=== PATIENT | male | born 1945 | race Caucasian/White ===

== ENCOUNTER 2017-03-31 12:59 | Inpatient (IN) | payer BC, OTHER ==
[~2017-03-31] VITALS: Ht 182.9 cm; Wt 72.1 kg
--- NOTE | ~2017-03-31 | HC ---
[facility] [place] [address] CONSULTATION Name: SAMMY BILLINGS Room #: 353-P [facility] IN ..#: [id number] Admission: 03/31/17 Attend Phys: Sean Lincoln MD Discharge: 04/03/17 Date of : 49 Report #: [id number] THIS REPORT FOR: //name// CC: JUSTYNA physician/PCP Sean Lincoln REASON FOR CONSULTATION: AFib. HISTORY OF PRESENT ILLNESS: The patient is a 71-year-old male with a history of atrial fibrillation, ETOH abuse and prior traumatic subarachnoid hemorrhage back in 05/2015 who presented with several days of palpitations started on Friday and started noticing increased fatigue and lightheadedness. He had had some frequent falls. He denies any problems with chest pain or chest tightness. He denies any PND or orthopnea. REVIEW OF SYSTEMS: GENERAL: No fevers or chills. HEENT: No blurred vision. CARDIOVASCULAR: As above. PULMONARY: No productive cough. GASTROINTESTINAL: No nausea or vomiting. GENITOURINARY: No dysuria. MUSCULOSKELETAL: No myalgias or arthralgias. ENDOCRINE: No heat or cold intolerance. PAST MEDICAL HISTORY: 1. Atrial fibrillation, previously on meds, but he stopped them approximately a year and a half ago, previously saw Dr. Rendon. 2. ETOH abuse, drinks about a pint a day. 3. Prior pancreatitis. 4. Gout. 5. ETOH withdrawal. 6. Traumatic subarachnoid hemorrhage 05/2015 in the setting of alcohol use. ALLERGIES: None. MEDICATIONS: Reviewed. SOCIAL HISTORY: Does not smoke. He does drink about a pint per day. PHYSICAL EXAMINATION: VITAL SIGNS: Temperature is 36.7, pulse 91, respiration 18, blood pressure 140/96, sats 98%. GENERAL: He is in no acute distress. HEENT: Oropharynx is clear. NECK: Supple, no thyromegaly. HEART: Irregularly irregular with no murmurs, rubs, gallops. He does not have [facility] [address] [place] [address] CONSULTATION Name: DANA BILLINGSWayne Nagel Room #: 353-[facility]#: [id number] Admission: 03/31/17 Attend Phys: Sean Lincoln MD Discharge: 04/03/17 Date of : 49 Report #: [id number] elevated jugular venous pressures. LUNGS: Clear bilaterally. ABDOMEN: Soft, nontender, nondistended. EXTREMITIES: No clubbing, cyanosis, edema. NEUROLOGIC: Cranial nerves 2-12 are intact. LABORATORY DATA: White count 5.7, hemoglobin 13, platelets 140. Chemistries: Sodium 138, potassium 3.6, BUN 24, creatinine 1.0, magnesium 0.8. On admission, troponin was negative. ProBNP was 485. His chest x-ray showed no acute process. His EKG shows atrial fibrillation with rapid ventricular response. His alcohol level was elevated at 29. His telemetry shows atrial fibrillation with rates under control. ASSESSMENT: 1. Atrial fibrillation with rapid ventricular response. 2. Alcohol abuse. 3. Prior subarachnoid hemorrhage. 4. Hypoglycemia. SUMMARY: The patient is a 71-year-old with history of atrial fibrillation who has had clinical recurrence. He is currently on a diltiazem drip. I have initiated Toprol and IV digoxin to get his rates under control and hopefully, get him off the drip. Given his recent falls, I am concerned about initiation of anticoagulation and we will start him on aspirin at this point and then discuss with him and his if they would like to initiate anticoagulation eventually. We will follow. <ELECTRONICALLY SIGNED> By: Jaylon Howe MD 04/04/17 1044 0825 1728 Jaylon Howe MD /nt
--- NOTE | ~2017-03-31 | CATHLAB ---
[facility] [place] [address] INVASIVE PROCEDURE REPORT Name: SAMMY BILLINGS Room #: 353-P [facility]#: [id number] Admission: 03/31/17 Attend Phys: Sean Lincoln MD Discharge: 04/03/17 Date of : 49 Date of Service: 04/03/17 0837 Report #: [id number] THIS REPORT FOR: //name// CC: [facility] physician/PCP Sean Lincoln INDICATIONS: Atrial fibrillation. PROCEDURE: The potential benefits and risks of the procedure were discussed at length with the patient who understood. Full written and informed consent was obtained. The patient was sedated with intravenous Versed and fentanyl. 100 biphasic synchronous joules were applied to the chest with prompt conversion of atrial fibrillation to sinus rhythm. He remained in electrically, neurologically and hemodynamically stable condition following the procedure and was transported back to his hospital room. <ELECTRONICALLY SIGNED> By: Larry Villarreal MD, FACC 04/04/17 0753 0837 0942 Larry Villarreal MD, FACC /nt
--- NOTE | ~2017-03-31 | 2DMMODE ---
[facility] [address] [place] [address] 2 D/M-MODE ECHOCARDIOGRAM Name: SAMMY BILLINGS Room #: 353-P [facility] IN [facility].#: [id number] Admission: 03/31/17 Attend Phys: Sean Lincoln MD Discharge: Date of : 49 Date of Service: 04/01/17 1146 Report #: [id number] THIS REPORT FOR: //name// APPROVED REPORT Study performed: 04/01/2017 10:55:36 EXAM: Comprehensive 2D, Doppler, and color-flow Echocardiogram Patient Location: Bedside Room #: 353 Status: routine BSA: 1.93 HR: 77 bpm BP: 140/96 mmHg Other Information Study Quality: Adequate Indications Atrial Fibrillation Hypertension/HDD 2D Dimensions RVDd: 40.48 mm LVEF(%): 64.95 (>50%) IVSd: 8.85 (7-11mm) LVOT Diam: 21.01 (18-24mm) LVDd: 39.66 mm PWd: 8.88 (7-11mm) Ascending Ao: 30.30 (22-36mm) LVDs: 25.76 (25-40mm) Aortic Root: 30.37 mm IVC: 15.00 mm Amaro's LVEF: 64.95 % Volumes Left Atrial Volume (Systole) Single Plane 4CH: 60.08 mL Single Plane 2CH: 57.30 mL LA ESV Index: 32.00 mL/m2 Aortic Valve AoV Peak Santo.: 1.18 m/s AO Peak Gr.: 5.62 mmHg LVOT Max P.81 mmHg LVOT Max V: 0.84 m/s SVEN Vmax: 2.46 cm2 Mitral Valve MV Decel. Time: 175.57 ms MV E Max Santo.: 0.72 m/s [facility] [place] [address] 2 D/M-MODE ECHOCARDIOGRAM Name: AWASAMMY W Room #: 353-P [facility] IN ..#: [id number] Admission: 03/31/17 Attend Phys: Sean Lincoln MD Discharge: Date of : 49 Date of Service: 04/01/17 1146 Report #: [id number] Pulmonary Valve PV Peak Santo.: 0.70 m/s PV Peak Gr.: 1.96 mmHg Left Ventricle The left ventricle is normal size. There is normal left ventricular wall thickness. The left ventricular systolic function is normal. The left ventricular ejection fraction is within the normal range. LVEF is 55-60%. Right Ventricle The right ventricle is normal size. The right ventricular systolic function is normal. Atria The left atrium size is normal. Right atrium is at the upper limits of normal. Aortic Valve The aortic valve is normal in structure. Aortic valve is calcified. No aortic regurgitation is present. There is no aortic valvular stenosis. Mitral Valve The mitral valve is normal in structure. Trace to mild mitral regurgitation. No evidence of mitral valve stenosis. Tricuspid Valve The tricuspid valve is normal in structure. There is trace tricuspid regurgitation. T There is no pulmonary hypertension. Pulmonic Valve The pulmonary valve is normal in structure. There is no pulmonic valvular regurgitation. Great Vessels The aortic root is normal in size. IVC is normal in size and collapses >50% with inspiration. Pericardium There is no pericardial effusion. <Conclusion> The left ventricle is normal size. LVEF is 55-60%. The aortic valve is normal in structure. [facility] [address] [place] [address] 2 D/M-MODE ECHOCARDIOGRAM Name: SAMMY BILLINGS Room #: 353-P [facility] IN ..#: [id number] Admission: 03/31/17 Attend Phys: Sean Lincoln MD Discharge: Date of : 49 Date of Service: 04/01/17 1146 Report #: [id number] Aortic valve is calcified. There is mild aortic valvular stenosis. The mitral valve is normal in structure. Trace to mild mitral regurgitation. The tricuspid valve is normal in structure. There is trace tricuspid regurgitation. T There is no pulmonary hypertension. The pulmonary valve is normal in structure. There is no pericardial effusion. <ELECTRONICALLY SIGNED> By: Allen Rey MD 04/01/17 1146 1146 1146 Allen Rey MD /INF
--- NOTE | ~2017-03-31 | EKG ---
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
--- NOTE | ~2017-03-31 | EKG ---
[address] [address] ELECTROCARDIOGRAM REPORT Name: SAMMY BILLINGS Room #: 353-P [facility] IN .R.#: [id number] Admission: 03/31/17 Attend Phys: Sean Lincoln MD Discharge: 04/03/17 Date of : 49 Report #: [id number] THIS REPORT FOR: //name// [facility] Test Date: 2017-04-03 Test Time: 05:46:59 Pat Name: SAMMY BILLINGS Department: Room: 353 Gender: M Balance Wheel Motion Inspector: : 1945 Requested By: Jaylon Howe Order Number: [id number] MD: Larry Villarreal Measurements Intervals [place] Rate: 73 P: GA: QRS: -7 QRSD: 93 T: 207 QT: 411 QTc: 453 Interpretive Statements Atrial fibrillation Borderline repolarization abnormality Compared to ECG 04/02/2017 06:38:16 No significant changes Electronically Signed On 04-03-2017 17:07:15 MANAGER TRUCK by Larry Villarreal [email or web address] <ELECTRONICALLY SIGNED> By: Larry Villarreal MD, [facility] 04/03/17 1707 5 Larry Villarreal MD, [facility] /EPI
--- NOTE | ~2017-03-31 | EKG ---
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 Maker: HELDER : 1945 Requested By: Jaylon Howe Order Number: [id number] MD: Larry Villarreal Measurements Intervals [place] Rate: 88 P: MT: QRS: -9 QRSD: 96 T: 76 QT: 362 QTc: 438 Interpretive Statements Atrial fibrillation Probable LVH with secondary repol abnrm Compared to ECG 04/01/2017 08:33:02 No significant changes Electronically Signed On 04-02-2017 8:12:32 DELINQUENT TAX COLLECTOR by Larry Villarreal [email or web address] <ELECTRONICALLY SIGNED> By: Larry Villarreal MD, [facility] 04/02/17 0812 7 Larry Villarreal MD, [facility] /EPI
--- NOTE | ~2017-03-31 | EKG ---
[address] [place] [address] ELECTROCARDIOGRAM REPORT Name: AWASAMMY W Room #: 353-[facility] IN M.R.#: [id number] Admission: 03/31/17 Attend Phys: Sean Lincoln MD Discharge: 04/03/17 Date of : 49 Report #: [id number] THIS REPORT FOR: //name// [facility] Test Date: 2017-04-03 Test Time: 09:04:03 Pat Name: SAMMY BILLINGS Department: Room: 353 Gender: M Padded Products Inspector Trimmer: Piotr THOMPSON : 1945 Requested By: Larry Villarreal Order Number: [id number] MD: Larry Villarreal Measurements Intervals [place] Rate: 73 P: 65 GA: 190 QRS: -10 QRSD: 88 T: 57 QT: 370 QTc: 408 Interpretive Statements Sinus rhythm Nonspecific ST segment abnormality Compared to ECG 04/02/2017 06:38:16 Atrial fibrillation no longer present Electronically Signed On 04-03-2017 17:09:35 REVOLVING INVENTORY CLERK by Larry Villarreal [email or web address] <ELECTRONICALLY SIGNED> By: Larry Villarreal MD, [facility] 04/03/17 1709 0904 0904 Larry Villarreal MD, [facility] /EPI
--- NOTE | ~2017-03-31 | EKG ---
[address] [address] ELECTROCARDIOGRAM REPORT Name: SAMMY BILLINGS Room #: 353-P ADM IN M.R.#: [id number] Admission: 03/31/17 Attend Phys: Sean Lincoln MD Discharge: Date of : 49 Report #: [id number] THIS REPORT FOR: //name// [facility] ED Test Date: 2017-03-31 Test Time: 13:13:29 Pat Name: SAMMY BILLINGS Department: Room: 353 Gender: M Chief I Dispatcher: [facility] : 1945 Requested By: Chan Boone Order Number: [id number] MD: Jaylon Howe Measurements Intervals [place] Rate: 128 P: MS: QRS: 7 QRSD: 92 T: 73 QT: 318 QTc: 464 Interpretive Statements Atrial fibrillation Probable LVH with secondary repol abnrm Compared to ECG 06/02/2015 07:31:02 Sinus rhythm no longer present ST (T wave) deviation no longer present Electronically Signed On 03-31-2017 21:03:44 ADJUNCT WRITING INSTRUCTOR by Jaylon Howe [email or web address] <ELECTRONICALLY SIGNED> By: Jaylon Howe MD 03/31/173 131 1313 Jaylon Howe MD /EPI
--- NOTE | ~2017-03-31 | TEE ---
[facility] [address] [place] [address] TRANSESOPHAGEAL ECHOCARDIOGRAM Name: AWASAMMY W Room #: 353-P [facility] IN [facility]#: [id number] Admission: 03/31/17 Attend Phys: Sean Lincoln MD Discharge: Date of : 49 Date of Service: 04/03/17 0954 Report #: [id number] THIS REPORT FOR: //name// APPROVED REPORT Study performed: 04/03/2017 09:13:28 EXAM: Comprehensive 2D, Doppler, and color-flow Echocardiogram Patient Location: Room #: 9 Status: routine BSA: 1.93 HR: 94 bpm BP: 132/92 mmHg Other Information Study Quality: Excellent Indications Atrial Fibrillation Echo Enhancing Agent Indication: Rule out Shunt Agent(s) / Amount(s) Used: Agitated Saline 7 cc Procedure After obtaining informed consent, patient underwent transesophageal echo in the [facility]. Type of Sedation : Conscious Sedation Sedation was administered by Carol Beth RN. Sedation start time: 924 Case end Time: 934 Sedation was achieved intravenously with: Versed (7 mg) Fentanyl (125 mcg) Transesophageal probe was inserted and advanced into esophagus without difficulty by Larry Villarreal MD. Echo enhancement indication: R/O Septal defect. Echo enhancement agent administered: Agitated Saline The MARK was performed without complications. Synchronized Cardioversion acheived with 150 Joules after 1 attempt(s). Rhythm following Synchronized Cardioversion: Normal Sinus Rhythm Throughout the procedure, the blood pressure, pulse oximetry, cardiac rhythm, and rate were monitored. The patient tolerated the procedure without adverse effects. Recovery [facility] [address] [place] [address] TRANSESOPHAGEAL ECHOCARDIOGRAM Name: SAMMY BILLINGS Room #: 353-P [facility]#: [id number] Admission: 03/31/17 Attend Phys: Sean Lincoln MD Discharge: Date of : 49 Date of Service: 04/03/17 0954 Report #: [id number] from conscious sedation was uneventful and vital signs were stable. Left Ventricle The left ventricle is normal size. There is normal LV segmental wall motion. There is normal left ventricular wall thickness. The left ventricular systolic function is normal. The left ventricular ejection fraction is within the normal range. LVEF is 55-60%. Right Ventricle The right ventricle is normal size. The right ventricular systolic function is normal. Atria The left atrium size is normal. No masses or clots in the left atrium or left atrial appendage No shunting by contrast bubble injection The right atrium size is normal. Aortic Valve The aortic valve is normal in structure. No aortic regurgitation is present. There is no aortic valvular stenosis. Mitral Valve The mitral valve is normal in structure. Mild mitral regurgitation. No evidence of mitral valve stenosis. Tricuspid Valve The tricuspid valve is normal in structure. There is no tricuspid valve regurgitation noted. Pulmonic Valve The pulmonary valve is normal in structure. There is no pulmonic valvular regurgitation. Great Vessels The aortic root is normal in size. The ascending aorta is normal in size. Pericardium There is no pericardial effusion. <Conclusion> The left ventricular systolic function is normal. There is normal LV segmental wall motion. LVEF 55-60%. No masses or clots in the left atrium or left atrial appendage. No shunting by contrast bubble injection [facility] [address] [place] [address] TRANSESOPHAGEAL ECHOCARDIOGRAM Name: SAMMY BILLINGS Room #: 353-P [facility] IN ..#: [id number] Admission: 03/31/17 Attend Phys: Sean Lincoln MD Discharge: Date of : 49 Date of Service: 04/03/17953 Report #: [id number] Normal chamber sizes The aortic valve is normal in structure. No aortic valvular stenosis or insufficiency The mitral valve is normal in structure. Mild mitral regurgitation. There is no pericardial effusion. <ELECTRONICALLY SIGNED> By: Larry Villarreal MD, [facility] 04/03/1754 3 0954 Larry Villarreal MD, FACC /INF
[~2017-03-31 12:59] MED LIST: ACETAMINOPHEN325 M1 PO; ALLOPURINOL 10100 M1 PO; ALLOPURINOL 30300 M2 PO; AMLODIPINE BESYL5 MG PO; ASPIRIN325 PO; ATENOLOL 25 MG25 M1 PO; ATENOLOL 25MG T25 M1 PO; ATENOLOL 50 MG50 M1 PO; ATIVAN1 MG PO; AUGMENTIN 875875 M1 PO; AVELOX 400 MG400 MG PO; BACTROBAN CREAM30 G1 TOP; CALCITRIOL0.25 MCG PO; CARVEDILOL25 MG PO; CLONIDINE0.1 PO; DEPO-TESTO200 MG/1 M IM; FLECAINIDE ACET50 M1 PO; FLOMAX0.4 MG PO; IBUPROFEN 600600 M1 PO; LISINOPRIL20 MG PO; MAG-OX 400 TAB400 M1 PO; MAGNESIUM400 MG PO; MULTIVITAMINS PO; MULTIVITAMINS1 EAC7; MULTIVITAMINS1 EAC7 PO; NEPHROCAPS SOFT1 CAP PO; NEURONTIN 300300 M1 PO; NORVASC5 MG PO; PACERONE 200 M200 M1 PO; PEPCID20 MG PO; PERCOCET 5-3251 EACH PO; PROTONIX40 M2 PO; REVIA 50 MG TAB50 M1 PO; REVIA 50 MG TAB50 MG PO; SERTRALINE HCL50 MG PO; SIMVASTATIN40 MG PO; VITAMIN B-1100 M1 PO; VITAMIN B-1100 MG PO; XARELTO10 MG PO; XARELTO20 MG PO; ZOLOFT 50 MG TA50 M1 PO; ZOLOFT25 MG PO
[2017-03-31 13:00] VITALS: BP 179/102
[2017-03-31 13:34] LABS: BASOPHILS 0.8 % (0.0-2.0); EOSINOPHILS 0.3 % (0.0-3.0); HEMATOCRIT 44.8 % (42.0-52.0); HEMOGLOBIN 14.8 gm/dL (14.0-18.0); LYMPHOCYTES 15.8 % (24.0-44.0); MCH 33.4 pg (26.0-34.0); MCHC 33.1 g/dL (28.0-37.0); MCV 100.7 fL (80.0-100.0); MONOCYTES 11.1 % (1.0-8.0); PLATELET COUNT 166 thou/uL (150-400); RBC 4.44 mil/uL (4.50-6.00); RDW 13.8 % (10.5-14.5); WBC 6.9 thou/uL (4.0-11.0)
[2017-03-31 13:36] LABS: MANUAL DIFF NO
[2017-03-31 13:44] LABS: ANION GAP 14 mmol/L (7-16); BUN 21 mg/dL (7-18); CALCIUM 10.1 mg/dL (8.5-10.1); CHLORIDE 99 mmol/L (98-107); CO2 27 mmol/L (21-32); CREATININE 1.2 mg/dL (0.7-1.3); GLUCOSE 113 mg/dL (74-106); POTASSIUM 3.9 mmol/L (3.5-5.1); SODIUM 140 mmol/L (136-145)
[2017-03-31 13:50] VITALS: BP 126/99
[2017-03-31 13:53] LABS: ALBUMIN 3.9 g/dL (3.4-5.0); ALKALINE PHOSPHATASE 62 U/L (46-116); SGOT 41 U/L (15-37); SGPT 30 U/L (30-65); TOTAL BILIRUBIN 2.5 mg/dL (<0.1-1.0); TOTAL PROTEIN 8.3 g/dL (6.4-8.2); TROPONIN-I < 0.04 ng/mL (<0.06)
[2017-03-31 14:02] LABS: MAGNESIUM 0.8 mg/dL (1.8-2.4)
[2017-03-31 15:10] VITALS: BP 122/96
[2017-03-31 15:31] VITALS: BP 129/93
[2017-03-31 19:50] VITALS: BP 141/100
[2017-03-31 23:15] VITALS: BP 120/92
[2017-04-01 03:50] VITALS: BP 140/96
[2017-04-01 04:47] LABS: HEMATOCRIT 39.7 % (42.0-52.0); HEMOGLOBIN 13.1 gm/dL (14.0-18.0); MCHC 32.9 g/dL (28.0-37.0); MCV 100.4 fL (80.0-100.0); RBC 3.95 mil/uL (4.50-6.00); RDW 13.7 % (10.5-14.5); WBC 5.7 thou/uL (4.0-11.0)
[2017-04-01 05:00] LABS: CALCIUM 9.3 mg/dL (8.5-10.1); POTASSIUM 3.6 mmol/L (3.5-5.1)
[2017-04-01 07:50] VITALS: BP 127/80
[2017-04-01 09:39] LABS: FREE T4 1.1 ng/dL (0.76-1.46)
[2017-04-01 11:46] VITALS: BP 121/89
[2017-04-01 15:35] VITALS: BP 1107/88
[2017-04-01 19:40] VITALS: BP 129/93
[2017-04-02 03:15] LABS: CALCIUM 9.3 mg/dL (8.5-10.1); MAGNESIUM 1.4 mg/dL (1.8-2.4); POTASSIUM 3.8 mmol/L (3.5-5.1)
[2017-04-02 04:25] VITALS: BP 120/81
[2017-04-02 04:27] LABS: HEMATOCRIT 37.2 % (42.0-52.0); HEMOGLOBIN 12.5 gm/dL (14.0-18.0); MCH 33.7 pg (26.0-34.0); MCHC 33.6 g/dL (28.0-37.0); MCV 100.3 fL (80.0-100.0); RBC 3.71 mil/uL (4.50-6.00); RDW 13.8 % (10.5-14.5); WBC 6.7 thou/uL (4.0-11.0)
[2017-04-02 09:11] VITALS: BP 117/86
[2017-04-02 12:30] VITALS: BP 120/85
[2017-04-02 17:16] VITALS: BP 148/101
[2017-04-02 20:00] VITALS: BP 164/112
[2017-04-03 04:00] VITALS: BP 135/113
[2017-04-03 05:47] LABS: HEMATOCRIT 36.8 % (42.0-52.0); HEMOGLOBIN 12.3 gm/dL (14.0-18.0); MCH 33.5 pg (26.0-34.0); MCHC 33.3 g/dL (28.0-37.0); MCV 100.5 fL (80.0-100.0); RBC 3.66 mil/uL (4.50-6.00); RDW 13.5 % (10.5-14.5); WBC 6.4 thou/uL (4.0-11.0)
[2017-04-03 05:52] LABS: CALCIUM 9.3 mg/dL (8.5-10.1); CREATININE 0.9 mg/dL (0.7-1.3); MAGNESIUM 1.4 mg/dL (1.8-2.4); POTASSIUM 3.5 mmol/L (3.5-5.1)
[2017-04-03 07:18] VITALS: BP 121/69
[2017-04-03] MEDS ORDERED: TOPROL XL100 MG PO (10:21)
[2017-04-03] MEDS ORDERED: LANOXIN 0.250.25 M1 PO (10:21)
[2017-04-03] MEDS ORDERED: PRADAXA150 MG PO (10:21)
[2017-04-03] MEDS ORDERED: ASPIRIN325 PO (10:22)
[2017-04-03] MEDS ORDERED: VITAMIN B-1100 M2 PO (10:22)
[2017-04-03] MEDS ORDERED: PEPCID20 MG PO (10:22)
[2017-04-03] MEDS ORDERED: MAGOX 400400 MG PO (10:22)
[2017-04-03] MEDS ORDERED: PRENATAL PO (10:23)
[2017-04-03 11:18] VITALS: BP 142/102
[2017-04-03 11:55] VITALS: BP 143/102
[2017-04-03] MEDS ORDERED: FLECAINIDE ACET50 M1 PO (11:57)
== END 2017-04-03 13:52 | disposition home or self-care (01) | DRG 310 ==
LOC: ER 12:59 → 3W 14:00 → EROBS 14:00 → 3W 15:11 → ENTRNSPT 04-03 13:19 → EDTRNSPTSTS 04-03 13:25 → 3W 04-03 13:52
PROVIDERS: Emergency Medicine; Hospitalist; Nurse Practitioner Family
PROC: B24BZZ4 Ultrasonography of Heart with Aorta, Transesophageal (ICD-10-PCS; principal; 2017-04-01)
PROC: B24BZZ4 Ultrasonography of Heart with Aorta, Transesophageal (ICD-10-PCS; 2017-04-03)
PROC: 5A2204Z Restoration of Cardiac Rhythm, Single (ICD-10-PCS; 2017-04-03)
DX: I48.0 Paroxysmal atrial fibrillation (principal); M10.9 Gout, unspecified; E16.2 Hypoglycemia, unspecified; F10.20 Alcohol dependence, uncomplicated; E83.42 Hypomagnesemia; E03.9 Hypothyroidism, unspecified; E07.81 Sick-euthyroid syndrome; F32.9 Major depressive disorder, single episode, unspecified; K21.9 Gastro-esophageal reflux disease without esophagitis; Z79.899 Other long term (current) drug therapy; Z91.81 History of falling; Z91.14 Patient's other noncompliance with medication regimen
CPT/HCPCS: 10779